=== PATIENT | male | born 1955 | race American Indian/Alaskan Native ===

== ENCOUNTER 2017-06-19 09:17 | Day surgery (SDC) | payer BC ==
[2016-02-01 19:13] VITALS: BMI 35.9
[2017-06-19] MEDS ORDERED: Lactated Ringer's 500 ML IV ONE (11:05)
[2017-06-19] MEDS ORDERED: Propofol 10 mg/ml Inj (20 ML) ONE (11:07)
[2017-06-19 13:13] VITALS: O2SAT 99
[2017-06-19 13:14] VITALS: RESP 16
[2017-06-19 13:16] VITALS: BP 126/67; PULSE 60; TEMP 97.8
== END 2017-06-19 13:25 | disposition home or self-care (01) ==
LOC: C.ENDO 09:17
PROVIDERS: ATTEND Internal Medicine Gastroenterology
DX: D12.4 Benign neoplasm of descending colon (principal); R11.0 Nausea; K64.8 Other hemorrhoids; K29.70 Gastritis, unspecified, without bleeding; B96.81 Helicobacter pylori [H. pylori] as the cause of diseases classified elsewhere
CPT/HCPCS: 43239; 45385; 82948; 88305; 88342; J2001; J2704; J7120

== ENCOUNTER 2018-06-17 05:54 | Day surgery (SDC) | payer BC ==
[2018-06-15 09:36] VITALS: BMI 32.6
[2018-06-17] MEDS ORDERED: Bupivacaine-Epi 0.5%-1:200,000 PF Inj ONE (07:06)
[2018-06-17] MEDS ORDERED: ceFAZolin IV 1 gm in Dextrose 2 GM/100 ML BAG IVPB ONE (07:06)
[2018-06-17] MEDS ORDERED: Midazolam 2 MG/2 ML VIAL ONE (07:57)
[2018-06-17] MEDS ORDERED: Propofol 10 mg/ml Inj (20 ML) ONE (07:58)
[2018-06-17] MEDS ORDERED: Neostigmine Methylsulfate 3mg/3ml Syringe IV ONE (08:58)
[2018-06-17] MEDS ORDERED: Oxycodone/Acetaminophen 5/325 mg Tab PO PRN (09:04)
--- NOTE | 2018-06-17 09:04 | PCM.SURG1 ---
Surgeon's Initial Post Op Note - Surgeon's Notes Surgeon: rosalia Golf Cart Maker: 0 Type of Anesthesia: General LMA Anesthesia Administered By: eun Pre-Operative Diagnosis: left inguinal hernia Operative Findings: left direct and indirect inguinal hernia Post-Operative Diagnosis: same Operation Performed: repair of left inguinal hernia - no mesh Specimen/Specimens Removed: sac and lipoma Estimated Blood Loss: EBL {In ML}: 20 Blood Products Given: N/A Drains Used: No Drains Post-Op Condition: Good Date of Surgery/Procedure: 06/17/18 Time of Surgery/Procedure: 09:03
[2018-06-17] MEDS ORDERED: Lactated Ringer's 1,000 ML IV SCH (09:30)
[2018-06-17] MEDS: HYDROmorphone 0.5 mg/0.5 ml ISec IVP PRN ×2 (10:00→10:35)
[2018-06-17 11:11] VITALS: O2SAT 100
[2018-06-17 11:18] VITALS: BP 132/60; PULSE 68; RESP 18; TEMP 97
--- NOTE | 2018-06-17 14:20 | OP ---
PROCEDURE DATE: 06/17/2018 PREOPERATIVE DIAGNOSIS: Left inguinal hernia. POSTOPERATIVE DIAGNOSIS: Left inguinal hernia. PROCEDURE CARRIED OUT: Repair of left inguinal hernia, no mesh. SURGEON: Phil Brooke Jr., MD. PLATING EQUIPMENT TENDER: None. ANESTHESIOLOGIST: Felton Castellanos CRNA TYPE OF ANESTHESIA: General anesthesia. INDICATIONS: The patient is a 62-year-old man with a history of bariatric surgery in the past, who presents with a large symptomatic left inguinal hernia. OPERATIVE FINDINGS: One of this is both a direct and an indirect hernia. The patient was well informed and had requested that no mesh be used during the procedure regardless of the circumstances. Accordingly, a tissue repair was carried out. DESCRIPTION OF PROCEDURE: The patient was given general anesthesia and intravenous antibiotics. Venodyne boots were applied. An incision was made in the groin exposing the external oblique. The cord and its contents were identified. These were swept away. The indirect and direct hernia were identified. The indirect hernia was amputated with use of a TA-30 stapler. The direct space, the herniating tissue was pushed back into the peritoneal cavity and the repair carried out joining the conjoint tendon to the shelving edge of the ligament. After this had been done, it was checked. Room was left for the cord, which was intact, and then the external oblique was closed. The subcutaneous tissues were closed. Prior to the operation, we both scrubbed, prepped and draped the area including use of Y drape. Antibiotics were administered and Marcaine was administered at the end. Blood loss of the procedure was less than 20 mL. OPERATION CARRIED OUT: Repair of left inguinal hernia both direct and indirect without the use of mesh. No mesh. Phil Brooke Jr., MD cc: 1. Miguel A Collazo MD 2. Cory Tinoco MD
== END 2018-06-17 12:46 | disposition home or self-care (01) ==
LOC: C.SDS 05:54
PROVIDERS: ATTEND Surgery Vascular Surgery
DX: K40.90 Unilateral inguinal hernia, without obstruction or gangrene, not specified as recurrent (principal)
CPT/HCPCS: 49505; 82948; 88304; J0690; J1170; J2250; J2704; J2710; J3010